=== PATIENT | male | born 1985 | race Caucasian/White ===

== ENCOUNTER 2017-04-09 15:41 | Emergency (ER) | payer BC, OTHER ==
[~2017-04-09] VITALS: Ht 172.7 cm; Wt 88.0 kg
[2017-04-09 15:45] VITALS: Ht 172.7 cm; Wt 88.0 kg
[2017-04-09 16:35] LABS: ADD SCAN DIFF NO
[2017-04-09 16:44] LABS: BASOPHILS % 0.2 % (0.0-2.0); EOSINOPHILS % 0.5 % (0.0-7.0); HEMOGLOBIN 14.6 g/dl (14.0-18.0); LYMPHOCYTES # 2.2 10^3/ul (0.8-2.9); LYMPHOCYTES % 36.6 % (15.0-51.0); MEAN CORPUSCULAR HEMOGLOBIN 29.9 pg (29.0-33.0); MEAN CORPUSCULAR VOLUME 88.1 fl (82.0-101.0); MEAN PLATELET VOLUME 9.1 fl (7.4-10.4); MONOCYTE # 0.3 10^3/ul (0.3-0.9); MONOCYTES % 5.5 % (0.0-11.0); NEUTROPHIL # 3.4 10^3/ul (1.6-7.5); PLATELET COUNT 251 10^3/UL (140-415); RED BLOOD COUNT 4.88 10^6/ul (4.70-6.10); RED CELL DISTRIBUTION WIDTH 12.4 % (11.5-14.5)
[2017-04-09 17:08] LABS: ALANINE AMINOTRANSFERASE 44 IU/L (13-69); ALBUMIN 5.3 g/dl (3.3-4.9); ALKALINE PHOSPHATASE 58 IU/L (42-121); ASPARTATE AMINO TRANSFERASE 34 IU/L (15-46); BILIRUBIN,INDIRECT 0.4 mg/dl (0-1.1); BILIRUBIN,TOTAL 0.4 mg/dl (0.2-1.3); TOTAL PROTEIN 8.2 g/dl (6.1-8.1)
--- NOTE | 2017-04-09 18:28 | ERD ---
ER Documentation Chief Complaint Date/Time DATE: 04/09/17 TIME: 18:26 Chief Complaint Pt with had splash of blood to B eye. HPI Patient is a 31-year-old male who states that he had blood and bodily fluid splashed into both of his eyes 3 hours ago. He states that it did not hurt. He states that he flushed his eyes out with water for 30 seconds. He has no complaints today. ROS All systems reviewed and are negative except as per history of present illness. Medications Home Meds Active Scripts Raltegravir Potassium* (Isentress*) 400 Mg Tablet, 400 MG PO BID for 30 Days, TAB Prov:EARL LAFLEUR PA-C 04/09/17 Emtricitabine-Tenofovir* (Truvada*) 200-300 Mg Tab, 1 TAB PO DAILY for 30 Days, TAB Prov:EARL LAFLEUR PA-C 04/09/17 Allergies Allergies: Coded Allergies: Penicillins (Verified Adverse Reaction, Severe, anaphylactic, 04/09/17) PMhx/Soc Medical and Surgical Hx: pt denies Medical Hx, pt denies Surgical Hx History of Surgery: No Anesthesia Reaction: No Hx Neurological Disorder: No Hx Respiratory Disorders: No Hx Cardiac Disorders: No Hx Psychiatric Problems: No Hx Miscellaneous Medical Probl: No Hx Alcohol Use: No Hx Substance Use: No Hx Tobacco Use: No Smoking Status: Never smoker FmHx Family History: No coronary disease, No diabetes, No other Physical Exam Vitals Vital Signs Date Time Temp Pulse Resp B/P Pulse Ox O2 Delivery O2 Flow Rate FiO2 04/09/17 15:45 98.3 82 16 138/80 100 Physical Exam GENERAL: Well-developed, well-nourished male. Appears in no acute distress. HEAD: Normocephalic, atraumatic. EYES: Pupils are equally reactive bilaterally. EOMs grossly intact. No conjunctival erythema. ENT: Moist mucous membranes. No uvula deviation. No kissing tonsils. No exudates. NECK: Supple. No lymphadenopathy or thyromegaly. No meningismus. negative kernig. negative brudinski. LUNG: Clear to auscultation bilaterally. No rhonchi, wheezing, rales or coarse breath sounds. HEART: Regular rate and rhythm. No murmurs, rubs or gallops. Extremities: Equal pulses bilaterally. No peripheral clubbing, cyanosis or edema. No unilateral leg swelling. NEUROLOGIC: Alert and oriented. Moving all four extremities. 5/5 strength in all extremities. Normal speech. Steady gait. SKIN: Normal color. Warm and dry. No rashes or lesions. Capillary refill < 2 seconds Result Diagram: 04/09/17 1622 Results 24 hrs Laboratory Tests Test 04/09/17 16:22 White Blood Count 6.010^3/ul Red Blood Count 4.8810^6/ul Hemoglobin 14.6g/dl Hematocrit 43.0% Mean Corpuscular Volume 88.1fl Mean Corpuscular Hemoglobin 29.9pg Mean Corpuscular Hemoglobin Concent 34.0g/dl Red Cell Distribution Width 12.4% Platelet Count 75972^3/UL Mean Platelet Volume 9.1fl Neutrophils % 57.0% Lymphocytes % 36.6% Monocytes % 5.5% Eosinophils % 0.5% Basophils % 0.2% Nucleated Red Blood Cells % 0.0/100WBC Neutrophils # 3.410^3/ul Lymphocytes # 2.210^3/ul Monocytes # 0.310^3/ul Eosinophils # 0.010^3/ul Basophils # 0.010^3/ul Nucleated Red Blood Cells # 0.010^3/ul Total Bilirubin 0.4mg/dl Direct Bilirubin 0.00mg/dl Indirect Bilirubin 0.4mg/dl Aspartate Amino Transf (AST/SGOT) 34IU/L Alanine Aminotransferase (ALT/SGPT) 44IU/L Alkaline Phosphatase 58IU/L Total Protein 8.2g/dl Albumin 5.3g/dl Hepatitis B Surface Antigen NEGATIVE Hepatitis C Antibody NEGATIVE HIV (1&2) Antibody NEGATIVE Procedures/MDM ER COURSE: I kept the patient and/or family informed of laboratory and diagnostic imaging results throughout the emergency room course. PROCEDURES 500 mL bilateral of Galen lens irrigation. Tolerated well with no adverse reaction. MEDICAL DECISION MAKING: This is a 31-year-old male who presents with body fluid splashed in his eyes today. Vital signs were reviewed. Patient is afebrile. Patient is not hypoxic. Patient is not toxic or ill-appearing. Patient had needlestick protocol drawn here in the ED. Patient will be given HIV prophylaxis medication. DISCHARGE: At this time, patient is stable for discharge and outpatient management with no new complaints during the ER course. Patient was sent home with HIV prophylaxis medication and to return in 1 month for recheck of laboratory studies.. Patient will be discharged home with instructions to recheck for new or worsening symptoms such as fever, nausea, weakness, LOC and to follow up with primary care in the next 1-2 days. Patient was advised to return to the ER for any new or worsening symptoms. Plan was discussed and patient and/or family understands and agrees. Home instructions were given. Departure Diagnosis: Primary Impression: Exposure to blood or body fluid Condition: Stable EARL LAFLEUR PA-C Apr 09, 2017 18:28
[2017-04-09] MEDS ORDERED: TRUV PO (18:37)
[2017-04-09] MEDS ORDERED: RALT400T4 PO (18:37)
[2017-04-09 18:52] VITALS: BP 128/80; PULSE 66; RESP 16
== END 2017-04-09 18:54 | disposition home or self-care (01) ==
LOC: FTE 15:41
DX: Z77.21 Contact with and (suspected) exposure to potentially hazardous body fluids (principal)
CPT/HCPCS: 36415; 80076; 85025; 86703; 86706; 86803; 87340; 99284